=== PATIENT | female | born 1990 | race Caucasian/White ===

== ENCOUNTER 2018-11-06 22:02 | Emergency (ER) | payer BC ==
[~2018-11-06] VITALS: Ht 154.9 cm; Wt 78.0 kg
[~2018-11-06 22:02] MED LIST: CEFDINIR300 MG PO; FLOXIN OTI0.3 %/5 ML OTIC; IBUPROFEN 800800 MG PO; MIRENA1 EACH IY; NORCO 5-325 TA1 EACH; PROMETHAZINE-C120 ML PO; ROBAXIN500 MG PO
[2018-11-06] MEDS ORDERED: PRENATAL PO (22:18)
[2018-11-06 23:07] VITALS: BP 95/61
== END 2018-11-06 23:07 | disposition short-term general hospital (02) ==
LOC: M.ERS 22:02
DX: O26.892 Other specified pregnancy related conditions, second trimester (principal); R10.30 Lower abdominal pain, unspecified; Z3A.22 22 weeks gestation of pregnancy